=== PATIENT | male | born 1950 | race Caucasian/White ===

== ENCOUNTER → 2025-04-15 10:52 | Outpatient (REF) | payer MEDICARE, SELFPAY | LOC: HWRCS 10:52 | PROVIDERS: ATTENDING PHYSICIAN Internal Medicine Cardiovascular Disease; FAMILY PHYSICIAN Nurse Practitioner Gerontology | DX: I10 Essential (primary) hypertension (principal); I25.810 Atherosclerosis of coronary artery bypass graft(s) without angina pectoris | CPT/HCPCS: 78452; 93017; A9500; J2785 ==